=== PATIENT | female | born 1990 | race Caucasian/White ===

== ENCOUNTER 2017-03-09 11:51 | Emergency (ER) | payer OTHER ==
[2017-03-09] MEDS ORDERED: NS 1,000 ML IV ONE ×2 (12:33→12:50)
[2017-03-09] MEDS ORDERED: ONDANSETRON 4 MG/2 ML VIAL IVP ONE (12:33)
[2017-03-09 12:58] LABS: % IMMATURE GRANULYOCYTES 0.2 % (0.0-1.1); ABSOLUTE IMMATURE GRANULOCYTES 0.03 10^3/uL (0.00-0.10); ADD DIFF? NO; ADD MORPH? NO; ADD SCAN? NO; ATYPICAL LYMPHOCYTE FLAG 0 (0-99); FRAGMENT RBC FLAG 0 (0-99); HEMATOCRIT 43.7 % (38.0-47.0); HEMOGLOBIN 15.4 g/dL (12.6-16.3); LEFT SHIFT FLG 0 (0-99); LIPEMIA HEMOLYSIS FLAG 90 (0-99); MEAN CELL HEMOGLOBIN 30.4 pg (27.9-34.1); MEAN CELL HEMOGLOBIN CONCENTR. 35.2 g/dL (32.4-36.7); MEAN CELL VOLUME 86.4 fL (81.5-99.8); MEAN PLATELET VOLUME 13.1 fL (8.7-11.7); PLATELET CLUMPS FLAG 0 (0-99); PLATELET COUNT 215 10^3/uL (150-400); RED BLOOD CELL COUNT 5.06 10^6/uL (4.18-5.33); RED CELL DISTRIBUTION WIDTH 12.5 % (11.5-15.2)
[2017-03-09 13:06] LABS: ANION GAP 19 mEq/L (8-16); CALCIUM 9.9 mg/dL (8.5-10.4); CARBON DIOXIDE 18 mEq/l (22-31); CHLORIDE 104 mEq/L (97-110); CREATININE 0.5 mg/dL (0.6-1.0); GLOMERULAR FILTRATION RATE > 60; GLUCOSE 88 mg/dL (70-100); POTASSIUM 3.8 mEq/L (3.5-5.2); SODIUM 141 mEq/L (134-144)
[2017-03-09 13:16] LABS: COLOR AMBER; LEUKOCYTE ESTERASE,URINE NEGATIVE (NEGATIVE); NITRITE,URINE NEGATIVE (NEGATIVE)
--- NOTE | 2017-03-09 13:20 | EDPHY ---
H & P Stated Complaint: Vomiting in 1st trimester;thinks she's dehydrated Time Seen by Provider: 03/09/17 12:51 HPI/ROS: CHIEF COMPLAINT: Vomiting HISTORY OF PRESENT ILLNESS: The patient is a at 10 weeks who presents to the ED with intractable nausea and vomiting for the past 3 days. She has had intermittent nausea and vomiting for the past 2 weeks. She denies any vaginal bleeding or discharge. She denies any headache or visual changes. The patient has been taking an [id number] anti emetic presumably doxylamine. Her OB doctor called in and antiemetic medication for her on Thursday which she has not yet picked up. REVIEW OF SYSTEMS: A comprehensive 10 point review of systems is otherwise negative aside from elements mentioned in the history of present illness. Source: Patient Exam Limitations: No limitations - Personal History LMP (Females 10-55): EDC: 10/03/17 Current Tetanus Diphtheria and Acellular Pertussis (TDAP): Yes - Medical/Surgical History Other PMH: - Social History Smoking Status: Never smoked - Physical Exam Exam: General Appearance: Alert, no distress Eyes: Pupils equal and round no pallor or injection ENT, Mouth: Dry mucous membranes Respiratory: There are no retractions, lungs are clear to auscultation Cardiovascular: Regular rate and rhythm Gastrointestinal: Abdomen is soft and nontender, no masses, bowel sounds normal Neurological: A&O, normal motor function, normal sensory exam, normal cranial nerves Skin: Warm and dry, no rashes Musculoskeletal: Neck is supple nontender Extremities: symmetrical, full range of motion Constitutional: Initial Vital Signs Temperature (C) 36.9 C 03/09/17 11:53 Heart Rate 78 03/09/17 11:53 Respiratory Rate 18 03/09/17 11:53 Blood Pressure 130/67 H 03/09/17 11:53 O2 Sat (%) 96 03/09/17 11:53 O2 Delivery Mode Room Air Allergies/Adverse Reactions: No Known Allergies Allergy (Unverified 03/09/17 11:56) Home Medications: Medication Instructions Recorded Vits W-Ca,Fe,FA(<1Mg) 1 each PO 03/09/17 [ Vitamins] Medical Decision Making ED Course/Re-evaluation: The patient had an IV established. She received 2 L of normal saline for moderate dehydration from hyperemesis gravidarum. The patient received 4 mg of IV Zofran. The patient's laboratory studies do demonstrate mild dehydration with slight ketones noted in her urine. She has no significant metabolic derangement. The patient's urinalysis demonstrates no evidence of an acute infection. The patient was evaluated several times by myself in the emergency department. She is feeling much better at 3:00 p.m.. She is now tolerating po fluid without any recurrent vomiting. The patient does have anti emetics which have been called in by her OBGYN doctor. The patient will be discharged from the emergency department at this point time with instructions to return to the ED for markedly worsening pain or other concerns. Differential Diagnosis: Differential diagnosis considered includes hyperemesis gravidarum, dehydration, metabolic abnormality - Data Points Laboratory Results: Laboratory Results 03/09/17 12:30 03/09/17 12:30 03/09/17 03/09/17 03/09/17 12:46 12:30 12:30 WBC 13.01 10^3/uL H 10^3/uL (3.80-9.50) RBC 5.06 10^6/uL 10^6/uL (4.18-5.33) Hgb 15.4 g/dL g/dL (12.6-16.3) Hct 43.7 % % (38.0-47.0) MCV 86.4 fL fL (81.5-99.8) MCH 30.4 pg pg (27.9-34.1) MCHC 35.2 g/dL g/dL (32.4-36.7) RDW 12.5 % % (11.5-15.2) Plt Count 215 10^3/uL 10^3/uL (150-400) MPV 13.1 fL H fL (8.7-11.7) Neut % (Auto) 80.0 % H % (39.3-74.2) Lymph % (Auto) 14.7 % L % (15.0-45.0) [place]lin % (Auto) 4.6 % % (4.5-13.0) Eos % (Auto) 0.1 % L % (0.6-7.6) Baso % (Auto) 0.4 % % (0.3-1.7) Nucleat RBC Rel Count 0.0 % % (0.0-0.2) Absolute Neuts (auto) 10.41 10^3/uL H 10^3/uL (1.70-6.50) Absolute Lymphs (auto) 1.91 10^3/uL 10^3/uL (1.00-3.00) Absolute Monos (auto) 0.60 10^3/uL 10^3/uL (0.30-0.80) Absolute Eos (auto) 0.01 10^3/uL L 10^3/uL (0.03-0.40) Absolute Basos (auto) 0.05 10^3/uL 10^3/uL (0.02-0.10) Absolute Nucleated RBC 0.00 10^3/uL 10^3/uL (0-0.01) Immature Gran % 0.2 % % (0.0-1.1) Immature Gran # 0.03 10^3/uL 10^3/uL (0.00-0.10) Sodium 141 mEq/L mEq/L (134-144) Potassium 3.8 mEq/L mEq/L (3.5-5.2) Chloride 104 mEq/L mEq/L (97-110) Carbon Dioxide 18 mEq/l L mEq/l (22-31) Anion Gap 19 mEq/L H mEq/L (8-16) BUN 13 mg/dL mg/dL (7-23) Creatinine 0.5 mg/dL L mg/dL (0.6-1.0) Estimated GFR > 60 Glucose 88 mg/dL mg/dL (70-100) Calcium 9.9 mg/dL mg/dL (8.5-10.4) Urine Color SHRADDHA Urine Appearance MODERATELY TURBID Urine pH 5.0 (5.0-7.5) Ur Specific [place] 1.031 H (1.002-1.030) Urine Protein 2+ H (NEGATIVE) Urine Ketones 2+ H (NEGATIVE) Urine Blood NEGATIVE (NEGATIVE) Urine Nitrate NEGATIVE (NEGATIVE) Urine Bilirubin NEGATIVE (NEGATIVE) Urine Urobilinogen 2.0 EU H EU (0.2-1.0) Ur Leukocyte Esterase NEGATIVE (NEGATIVE) Urine RBC 1-3 /hpf /hpf (0-3) Urine WBC 3-5 /hpf H /hpf (0-3) Ur Epithelial Cells TRACE /lpf /lpf (NONE-1+) Urine Mucus 4+ /lpf H /lpf (NONE-1+) Urine Glucose 1+ H (NEGATIVE) Medications Given: Discontinued Medications Sodium Chloride (Ns) 1,000 mls @ 0 mls/hr IV ONCE ONE PRN Reason: Wide Open Stop: 03/09/17 12:34 Last Admin: 03/09/17 12:36 Dose: 1,000 mls Sodium Chloride (Ns) 1,000 mls @ 0 mls/hr IV EDNOW ONE; Wide Open PRN Reason: Protocol Stop: 03/09/17 12:51 Last Admin: 03/09/17 13:10 Dose: 1,000 mls Ondansetron HCl (Zofran) 4 mg IVP EDNOW ONE Stop: 03/09/17 12:34 Last Admin: 03/09/17 12:36 Dose: 4 mg Departure - Departure Disposition: Home, Routine, Self-Care Clinical Impression: Hyperemesis gravidarum, Dehydration Condition: Good Instructions: Hyperemesis Gravidarum (ED) Additional Instructions: 1. Please follow up with Dr. Post as scheduled. 2. Please begin the antinausea medications you have been prescribed. 3. Return to the ED for any recurrence uncontrolled vomiting, lightheadedness, fever, headache, vaginal bleeding, abdominal pain or other concerns. Referrals: Amy Mistry MD [Medical Doctor] - As per Instructions
[2017-03-09 13:25] LABS: MUCUS 4+ /lpf (NONE-1+)
[2017-03-09 15:32] VITALS: BP 98/50; PULSE 84; RESP 16; TEMP 98.2; O2SAT 96
== END 2017-03-09 15:31 | disposition home or self-care (01) ==
DX: O21.1 Hyperemesis gravidarum with metabolic disturbance (principal); E86.9 Volume depletion, unspecified; Z3A.10 10 weeks gestation of pregnancy
CPT/HCPCS: 96374; J2405